=== PATIENT | male | born 1950 | race Caucasian/White ===

== ENCOUNTER 2017-01-24 17:46 | Emergency (ER) | payer OTHER ==
[2017-01-24] MEDS ORDERED: NS 1,000 ML IV ONE (18:31)
[2017-01-24] MEDS ORDERED: MECLIZINE HCL 25 MG TAB PO ONE ×2 (18:32→21:38)
--- NOTE | 2017-01-24 18:35 | EDPHY ---
H & P Stated Complaint: N/V, felt "feverish". vertigo worse w/movement Time Seen by Provider: 01/24/17 18:16 HPI/ROS: CHIEF COMPLAINT: Vertigo, nausea, diaphoresis HISTORY OF PRESENT ILLNESS: Patient is a 66-year-old healthy man who comes to the emergency department complaining of nausea, vertigo, diaphoresis that has been increasingly severe since this afternoon while he was at work. He has a history of benign positional vertigo and tinnitus but states that this does not feel similar because it is not fatigue. It does seem worse when he stands and tries to walk. It is not worsened with turning his head. It is also not as severe or intermittent. He denies chest pain or shortness breath. 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 He has not had a fever or been ill recently. He denies any head trauma. He has not had any focal weakness or numbness. He denies headache. REVIEW OF SYSTEMS: Constitutional: denies: chills, fever, recent illness, recent injury EENTM: denies: blurred vision, double vision, nose congestion Respiratory: denies: cough, shortness of breath Cardiac: denies: chest pain, irregular heart rate, lightheadedness, palpitations Gastrointestinal/Abdominal: denies: abdominal pain, diarrhea, nausea, vomiting, blood streaked stools Genitourinary: denies: dysuria, frequency, hematuria, pain Musculoskeletal: denies: joint pain, muscle pain Skin: denies: lesions, rash, jaundice, bruising Neurological: See HPI denies: headache, numbness, paresthesia, tingling, weakness Hematologic/Lymphatic: denies: blood clots, easy bleeding, easy bruising Immunologic/allergic: denies: HIV/AIDS, transplant EXAM: GENERAL: Well-appearing, well-nourished and in no acute distress. HEAD: Atraumatic, normocephalic. EYES: Nystagmus that is slightly rotation no when looking to both directions laterally with fast component to the left. Pupils equal round and reactive to light, extraocular movements intact, sclera anicteric, conjunctiva are normal. ENT: TMs normal, nares patent, oropharynx clear without exudates. Moist mucous membranes. NECK: Normal range of motion, supple without lymphadenopathy or JVD. LUNGS: Breath sounds clear to auscultation bilaterally and equal. No wheezes rales or rhonchi. HEART: Regular rate and rhythm without murmurs, rubs or gallops. ABDOMEN: Soft, nontender, normoactive bowel sounds. No guarding, no rebound. No masses appreciated. BACK: No CVA tenderness, no spinal tenderness, step-offs or deformities EXTREMITIES: Normal range of motion, no pitting or edema. No clubbing or cyanosis. NEUROLOGICAL: Cranial nerves II through XII grossly intact. Normal speech, normal gait. 5/5 strength, normal movement in all extremities, normal sensation normal ambulation but some difficulty with balance on heel to toe. Normal cerebellar exam with finger to nose and heel to garn[place]. PSYCH: Normal mood, normal affect. SKIN: Warm, dry, normal turgor, no visible rashes or lesions. Source: Patient Exam Limitations: No limitations - Personal History Current Tetanus Diphtheria and Acellular Pertussis (TDAP): Yes - Medical/Surgical History Hx Asthma: No Hx Chronic Respiratory Disease: No Hx Diabetes: No Hx Cardiac Disease: No Hx Renal Disease: No Hx Cirrhosis: No Other PMH: cholesterol - Family History Significant Family History: No pertinent family hx - Social History Smoking Status: Never smoked Alcohol Use: Sober Drug Use: None Constitutional: Initial Vital Signs Temperature (C) 36.9 C 01/24/17 17:48 Heart Rate 50 L 01/24/17 17:48 Respiratory Rate 16 01/24/17 17:48 Blood Pressure 134/65 H 01/24/17 17:48 O2 Sat (%) 96 01/24/17 17:48 O2 Delivery Mode Room Air Allergies/Adverse Reactions: No Known Allergies Allergy (Unverified 01/24/17 17:51) Home Medications: Medication Instructions Recorded Meclizine HCl [Meclizine HCl 25 mg 25 mg PO BID PRN #20 tab 01/24/17 (RX,OTC)] Ondansetron Odt [Zofran Odt 4 mg 4 mg PO Q4 PRN #10 tab 01/24/17 (RX)] Rosuvastatin Calcium [Crestor 40mg 40 mg PO 01/24/17 (*)] Medical Decision Making - Diagnostics EKG Interpretation: An EKG obtained and was read and documented in trace view. Please see trace view for full reading and report. Sinus bradycardia, large QRS with repolarization abnormality with a concave pattern in anterior leads. An EKG obtained and was read and documented in trace view. Please see trace view for full reading and report. Sinus bradycardia, unchanged from previous Imaging Results: Imaging Impressions Brain MRI 01/24/17 18:31 Impression: 1. Normal MRI of the brain without and with contrast. 2. Right maxillary sinus disease If symptoms worsen, additional imaging may be necessary. Findings discussed with Sridhar Yousif M.D. at 21:24 hour, 01/24/2017. ED Course/Re-evaluation: I did but the patient through the Sushila maneuver with no improvement in symptoms. Patient's EKG does show some ST elevation but it is concave and most likely represents repolarization abnormality. He denies any chest pain or shortness of breath. We will repeat the EKG in 15 minutes. 7:15 p.m. repeat EKG is unchanged. I suspect that the patient has repolarization abnormality secondary to thickened myocardium from cardiovascular exercise. Remains asymptomatic for his cardiac symptoms but he states that his vertigo is improving. He declines the meclizine. 9:30 p.m. the patient is feeling much better. He states his vertigo is almost completely resolved. We discussed his MRI results which are reassuring. His troponin is negative and his EKG is stable. He declines any further workup or testing at this time. He does agree to take the meclizine now. Will give prescription. He denies any sinus pressure or pain. This may be contributing or making his baseline vertigo different. Differential Diagnosis: Partial list of the Differential diagnosis considered include but were not limited to; benign positional vertigo, infection and although unlikely based on the history and physical exam, I also considered seizure, tumor, aneurysm, dissection, acute coronary disease. I discussed these differential diagnoses and the plan with the patient as well as the usual and expected course. The patient understands that the diagnosis is provisional and that in medicine we are not always correct and that further workup is often warranted. Usual and customary warnings were given. All of the patient's questions were answered. The patient was instructed to return to the emergency department should the symptoms at all worsen or return, otherwise to followup with the physician as we discussed. - Data Points Laboratory Results: Laboratory Results 01/24/17 18:50 01/24/17 18:50 01/24/17 01/24/17 01/24/17 18:50 18:50 18:50 WBC 11.86 10^3/uL H 10^3/uL (3.80-9.50) RBC 4.65 10^6/uL 10^6/uL (4.40-6.38) Hgb 14.2 g/dL g/dL (13.7-17.5) Hct 41.6 % % (40.0-51.0) MCV 89.5 fL fL (81.5-99.8) MCH 30.5 pg pg (27.9-34.1) MCHC 34.1 g/dL g/dL (32.4-36.7) RDW 12.5 % % (11.5-15.2) Plt Count 271 10^3/uL 10^3/uL (150-400) MPV 10.8 fL fL (8.7-11.7) Neut % (Auto) 85.3 % H % (39.3-74.2) Lymph % (Auto) 8.9 % L % (15.0-45.0) [place] % (Auto) 4.7 % % (4.5-13.0) Eos % (Auto) 0.4 % L % (0.6-7.6) Baso % (Auto) 0.4 % % (0.3-1.7) Nucleat RBC Rel Count 0.0 % % (0.0-0.2) Absolute Neuts (auto) 10.11 10^3/uL H 10^3/uL (1.70-6.50) Absolute Lymphs (auto) 1.05 10^3/uL 10^3/uL (1.00-3.00) Absolute Monos (auto) 0.56 10^3/uL 10^3/uL (0.30-0.80) Absolute Eos (auto) 0.05 10^3/uL 10^3/uL (0.03-0.40) Absolute Basos (auto) 0.05 10^3/uL 10^3/uL (0.02-0.10) Absolute Nucleated RBC 0.00 10^3/uL 10^3/uL (0-0.01) Immature Gran % 0.3 % % (0.0-1.1) Immature Gran # 0.04 10^3/uL 10^3/uL (0.00-0.10) PT 13.6 SEC SEC (12.0-15.0) INR 1.05 (0.83-1.16) APTT 30.2 SEC SEC (23.0-38.0) Sodium 137 mEq/L mEq/L (134-144) Potassium 4.2 mEq/L mEq/L (3.5-5.2) Chloride 101 mEq/L mEq/L (97-110) Carbon Dioxide 25 mEq/l mEq/l (22-31) Anion Gap 11 mEq/L mEq/L (8-16) BUN 20 mg/dL mg/dL (7-23) Creatinine 0.8 mg/dL mg/dL (0.7-1.3) Estimated GFR > 60 Glucose 109 mg/dL H mg/dL (70-100) Calcium 9.5 mg/dL mg/dL (8.5-10.4) Troponin I < 0.012 ng/mL ng/mL (0.000-0.034) Medications Given: Discontinued Medications Sodium Chloride (Ns) 1,000 mls @ 0 mls/hr IV EDNOW ONE; Wide Open PRN Reason: Protocol Stop: 01/24/17 18:32 Last Admin: 01/24/17 18:55 Dose: 1,000 mls Meclizine HCl (Meclizine Hcl) 50 mg PO EDNOW ONE Stop: 01/24/17 18:33 Last Admin: 01/24/17 19:05 Dose: Not Given Meclizine HCl (Meclizine Hcl) 50 mg PO EDNOW ONE Stop: 01/24/17 21:39 Last Admin: 01/24/17 21:40 Dose: 50 mg Departure - Departure Disposition: Home, Routine, Self-Care Clinical Impression: Vertigo Condition: Fair Instructions: Vertigo (ED) Referrals: Stuart Hill MD [Primary Care Provider] - As per Instructions Prescriptions: Meclizine HCl [Meclizine HCl 25 mg (RX,OTC)] 25 mg PO BID PRN #20 tab PRN Reason: Vertigo Ondansetron Odt [Zofran Odt 4 mg (RX)] 4 mg PO Q4 PRN #10 tab PRN Reason: Nausea & Vomiting
--- NOTE | 2017-01-24 18:49 | CPEKG ---
Heart Rate: 42 RR Interval: 1429 P-R Interval: 192 QRSD Interval: 90 QT Interval: 532 QTC Interval: 445 P [place]: 60 QRS [place]: 32 T Wave [place]: -1 EKG Severity - ABNORMAL ECG - EKG Impression: SINUS BRADYCARDIA EKG Impression: NONSPECIFIC T ABNORMALITIES, INFERIOR LEADS EKG Impression: BORDERLINE ST ELEVATION, ANTERIOR LEADS Electronically Signed By: Sridhar Yousif 24-Jan-2017 18:50:50
[2017-01-24 18:58] LABS: % IMMATURE GRANULYOCYTES 0.3 % (0.0-1.1); ABSOLUTE IMMATURE GRANULOCYTES 0.04 10^3/uL (0.00-0.10); ADD DIFF? NO; ADD MORPH? NO; ADD SCAN? NO; ATYPICAL LYMPHOCYTE FLAG 0 (0-99); FRAGMENT RBC FLAG 0 (0-99); HEMATOCRIT 41.6 % (40.0-51.0); HEMOGLOBIN 14.2 g/dL (13.7-17.5); LEFT SHIFT FLG 0 (0-99); LIPEMIA HEMOLYSIS FLAG 90 (0-99); MEAN CELL HEMOGLOBIN 30.5 pg (27.9-34.1); MEAN CELL HEMOGLOBIN CONCENTR. 34.1 g/dL (32.4-36.7); MEAN CELL VOLUME 89.5 fL (81.5-99.8); MEAN PLATELET VOLUME 10.8 fL (8.7-11.7); PLATELET CLUMPS FLAG 0 (0-99); PLATELET COUNT 271 10^3/uL (150-400); RED BLOOD CELL COUNT 4.65 10^6/uL (4.40-6.38); RED CELL DISTRIBUTION WIDTH 12.5 % (11.5-15.2)
[2017-01-24 19:06] LABS: INR 1.05 (0.83-1.16); PROTIME(PATIENT) 13.6 SEC (12.0-15.0)
[2017-01-24 19:07] LABS: APTT 30.2 SEC (23.0-38.0)
[2017-01-24 19:08] LABS: ANION GAP 11 mEq/L (8-16); CALCIUM 9.5 mg/dL (8.5-10.4); CARBON DIOXIDE 25 mEq/l (22-31); CHLORIDE 101 mEq/L (97-110); CREATININE 0.8 mg/dL (0.7-1.3); GLOMERULAR FILTRATION RATE > 60; GLUCOSE 109 mg/dL (70-100); POTASSIUM 4.2 mEq/L (3.5-5.2); SODIUM 137 mEq/L (134-144)
--- NOTE | 2017-01-24 19:14 | CPEKG ---
Heart Rate: 46 RR Interval: 1304 P-R Interval: 184 QRSD Interval: 78 QT Interval: 532 QTC Interval: 466 P [place]: 63 QRS [place]: 35 T Wave [place]: 0 EKG Severity - OTHERWISE NORMAL ECG - EKG Impression: SINUS BRADYCARDIA EKG Impression: MINIMAL ST ELEVATION, ANTERIOR LEADS Electronically Signed By: Sridhar Yousif 24-Jan-2017 19:20:22
[2017-01-24 19:20] LABS: TROPONIN I < 0.012 ng/mL (0.000-0.034)
--- NOTE | 2017-01-24 19:42 | CPEKG ---
Heart Rate: 47 RR Interval: 1277 P-R Interval: 192 QRSD Interval: 90 QT Interval: 540 QTC Interval: 478 P [place]: 62 QRS [place]: 36 T Wave [place]: -3 EKG Severity - BORDERLINE ECG - EKG Impression: SINUS BRADYCARDIA EKG Impression: BORDERLINE T ABNORMALITIES, INFERIOR LEADS EKG Impression: BORDERLINE PROLONGED QT INTERVAL Electronically Signed By: Sridhar Yousif 24-Jan-2017 19:47:34
[2017-01-24] MEDS ORDERED: GADOBUTROL 10 ML VIAL IVP ONE (20:38)
[2017-01-24] MEDS ORDERED: MECLIZINE HCL 25 MG TAB ONE (21:34)
[2017-01-24 21:48] VITALS: BP 134/80; PULSE 48; RESP 16; TEMP 97.5; O2SAT 96
== END 2017-01-24 21:48 | disposition home or self-care (01) ==
DX: R42 Dizziness and giddiness (principal); E86.9 Volume depletion, unspecified
CPT/HCPCS: 70553; 93005; 96360; 99285; A9585

== ENCOUNTER 2017-04-07 17:52 | Emergency (ER) | payer OTHER ==
[2017-04-07 17:56] VITALS: TEMP 98.6
[2017-04-07] MEDS ORDERED: NS 1,000 ML IV ONE ×2 (18:01→18:36)
[2017-04-07] MEDS ORDERED: ONDANSETRON 4 MG/2 ML VIAL IVP ONE ×2 (18:01→19:17)
--- NOTE | 2017-04-07 18:12 | EDPHY ---
H & P Time Seen by Provider: 04/07/17 17:56 HPI/ROS: CHIEF COMPLAINT: Vertigo HISTORY OF PRESENT ILLNESS: The patient is a 66-year-old male with a history of vertigo presenting with dizziness that developed after a bike ride today. Today the patient felt somewhat woozy while biking, like he might develop vertigo. When he got home, he felt like the room was spinning and had difficulty ambulating. He because nauseous and diaphoretic. He took Meclizine and afterwards felt fatigued and weak. He began hyperventilating and vomited 15 minutes after taking the Meclizine. Similar to prior episodes of vertigo. The patient was here 01/24/17 with benign positional vertigo. He had a normal brain MRI at that time. No chest pain, shortness of breath. REVIEW OF SYSTEMS: A comprehensive 10 point review of systems is otherwise negative aside from elements mentioned in the history of present illness. Past Medical/Surgical History: Vertigo. Social History: . Smoking Status: Never smoked Physical Exam: General Appearance: Alert, pleasant Eyes: Pupils equal and round, no conjunctival pallor or injection, horizontal nystagmus ENT, Mouth: Mucous membranes moist Neck: Normal inspection Respiratory: Lungs are clear to auscultation Cardiovascular: Regular rate and rhythm Gastrointestinal: Abdomen is soft and non-tender Neurological: Alert, oriented x3, cranial nerves II through XII intact, motor 5 /5, sensory intact to light touch Skin: Warm and dry, no rash Extremities: Nontender, no pedal edema Psychiatric: Mood and affect normal Constitutional: Initial Vital Signs Temperature (C) 37 C 04/07/17 17:54 Heart Rate 56 L 04/07/17 17:54 Respiratory Rate 22 H 04/07/17 17:54 Blood Pressure 120/77 04/07/17 17:54 O2 Sat (%) 100 04/07/17 17:54 O2 Delivery Mode Nasal Cannula O2 (L/minute) 2 Allergies/Adverse Reactions: No Known Allergies Allergy (Verified 04/07/17 17:53) Home Medications: Medication Instructions Recorded Meclizine HCl [Meclizine HCl 25 mg 25 mg PO BID PRN #20 tab 01/24/17 (RX,OTC)] Ondansetron Odt [Zofran Odt 4 mg 4 mg PO Q4 PRN #10 tab 01/24/17 (RX)] Rosuvastatin Calcium [Crestor 40mg 40 mg PO 01/24/17 (*)] Ondansetron Odt [Zofran Odt 4 mg 4 mg PO Q4 PRN #6 tab 04/07/17 (*)] Medical Decision Making - Diagnostics EKG Interpretation: EKG interpreted by me reveals normal sinus rhythm, nonspecific intraventricular conduction delay, probable left ventricular hypertrophy. Interpretation: abnormal EKG ED Course/Re-evaluation: The patient is a healthy, active male presenting with vertigo. Clinical presentation consistent with peripheral etiology of vertigo. He has a normal neurologic exam and no concerning signs or symptoms for central etiology. The patient developed vertigo after a bike ride today. He took Meclizine and vomited shortly after. The patient's symptoms have since improved, however, he continues to feel nauseous. 4mg IV Zofran and Meclizine 25 mg PO given. His lab work is consistent with dehydration, IV fluids administered. 7:30 p.m.-feels better, though continues to have mild nausea. Zofran 4 mg IV given. 8:05 p.m.- feels much better after the 2nd dose of IV Zofran. Nausea and vertigo have resolved. Patient is able to ambulate with a steady gait. The patient encouraged to drink plenty of fluids when he exercises strenuously. He has a prescription of meclizine at home. I wrote a prescription for Zofran ODT. Differential Diagnosis: Differential diagnosis includes TIA, stroke, intracranial hemorrhage, tumor, electrolyte abnormality and acute labyrinthitis. - Data Points Laboratory Results: Laboratory Results 04/07/17 18:10 04/07/17 18:10 Medications Given: Discontinued Medications Sodium Chloride (Ns) 1,000 mls @ 0 mls/hr IV ONCE ONE PRN Reason: Wide Open Stop: 04/07/17 18:02 Last Admin: 04/07/17 18:12 Dose: 1,000 mls Sodium Chloride (Ns) 1,000 mls @ 0 mls/hr IV ONCE ONE; Wide Open PRN Reason: Protocol Stop: 04/07/17 18:37 Last Admin: 04/07/17 19:22 Dose: 1,000 mls Meclizine HCl (Meclizine Hcl) 25 mg PO EDNOW ONE Stop: 04/07/17 18:36 Last Admin: 04/07/17 18:59 Dose: Not Given Ondansetron HCl (Zofran) 4 mg IVP EDNOW ONE Stop: 04/07/17 18:02 Last Admin: 04/07/17 18:12 Dose: 4 mg Ondansetron HCl (Zofran) 4 mg IVP EDNOW ONE Stop: 04/07/17 19:18 Last Admin: 04/07/17 19:23 Dose: 4 mg Departure - Departure Disposition: Home, Routine, Self-Care Clinical Impression: Vertigo Benign positional vertigo Qualifiers: Laterality: left Qualified Code(s): H81.12 - Benign paroxysmal vertigo, left ear Condition: Good Instructions: Ondansetron (By mouth), Vertigo (ED) Additional Instructions: Take Meclizine as directed for recurrent symptoms. Take Zofran 4 mg underthe tongue every 6 hours as needed for nausea. You have been referred to the event specialist food demonstrator ENT specialist, follow up as needed. Referrals: Stuart Hill MD [Primary Care Provider] - As per Instructions Denae Colindres MD [Medical Doctor] - As per Instructions (ENT specialist) Prescriptions: Ondansetron Odt [Zofran Odt 4 mg (*)] 4 mg PO Q4 PRN #6 tab PRN Reason: Nausea Report Scribed for: Heidi Parker Report Scribed by: Brisa Daugherty Date of Report: 04/07/17 Time of Report: 18:14 Physician Review and Approval Statement: 04/07/17 18:14 Portions of this note were transcribed by a medical accounts receivable specialist. I personally performed the history, physical exam, and medical decision-making; and confirmed the accuracy of the information in the transcribed note.
[2017-04-07 18:19] LABS: PLATELET COUNT 331 10^3/uL (150-400)
[2017-04-07] MEDS ORDERED: MECLIZINE HCL 25 MG TAB PO ONE (18:35)
--- NOTE | 2017-04-07 18:50 | CPEKG ---
Heart Rate: 52 RR Interval: 1154 P-R Interval: 200 QRSD Interval: 112 QT Interval: 562 QTC Interval: 523 P [place]: 60 QRS [place]: 20 T Wave [place]: -20 EKG Severity - ABNORMAL ECG - EKG Impression: SINUS RHYTHM EKG Impression: NONSPECIFIC INTRAVENTRICULAR CONDUCTION DELAY EKG Impression: PROBABLE LEFT VENTRICULAR HYPERTROPHY Electronically Signed By: Heidi Parker 09-Apr-2017 20:47:10
[2017-04-07 19:16] VITALS: PULSE 52
[2017-04-07 20:17] VITALS: BP 129/74; RESP 16; O2SAT 100
== END 2017-04-07 20:10 | disposition home or self-care (01) ==
DX: H81.12 Benign paroxysmal vertigo, left ear (principal); E86.9 Volume depletion, unspecified
CPT/HCPCS: 93005; 96361; 96374; 96376; 99284; J2405